=== PATIENT | female | born 1965 | race Caucasian/White ===

== ENCOUNTER 2019-04-18 16:48 | Inpatient (IN) | payer OTHER ==
[~2019-04-18] VITALS: Ht 157.5 cm; Wt 78.5 kg
[2019-04-18 17:04] VITALS: BP 148/85
[2019-04-18] MEDS ORDERED: KETOROLAC 30 MG/ML VIAL IVP ONE (17:25)
[2019-04-18] MEDS: NACL 0.9% 500 ML IV SCH ×2 (17:44→20:37)
[2019-04-18 18:18] LABS: BASOPHILS % (AUTO) 0.2 % (0.0-2.0); EOSINOPHILS % (AUTO) 0.2 % (0.0-4.0); HEMATOCRIT 40.9 % (36-48); HEMOGLOBIN 13.4 g/dL (12.0-16.0); LYMPHOCYTES # (AUTO) 1.5 K/uL (2.5-16.5); LYMPHOCYTES % (AUTO) 12.9 % (20.5-51.1); MEAN CORPUSCULAR HEMOGLOBIN 28 pg (27-31); MEAN CORPUSCULAR HGB CONC 33 g/dL (33-37); MEAN CORPUSCULAR VOLUME 86.2 fL (80-94); MONOCYTES # (AUTO) 0.3 K/uL (0.8-1.0); MONOCYTES % (AUTO) 2.8 % (1.7-9.3); NEUTROPHILS # (AUTO) 9.8 K/uL (1.8-7.7); NEUTROPHILS % (AUTO) 83.9 % (42.2-75.2); PLATELET COUNT (AUTO) 222 K/uL (140-450); RED BLOOD CELL COUNT(AUTO) 4.74 MIL/uL (4.20-5.40); RED CELL DISTRIBUTION WIDTH 14.5 % (11.6-13.7); WHITE BLOOD COUNT (AUTO) 11.7 K/uL (4.8-10.8)
[2019-04-18 18:41] LABS: PROTHROMBIN TIME 9.6 secs (10.8-13.4)
[2019-04-18 18:58] LABS: ALBUMIN 3.9 g/dL (3.4-5.0); ANION GAP 13.8 (8-16); CARBON DIOXIDE 27.5 mmol/L (21-32); POTASSIUM 3.3 mmol/L (3.5-5.1); TOTAL BILIRUBIN 0.3 mg/dL (0.0-1.0)
[2019-04-18] MEDS ORDERED: MORPHINE SULFATE 4 MG/ML SYR IVP ONE (19:00)
[2019-04-18] MEDS ORDERED: ONDANSETRON 4 MG/2 ML VIAL IVP ONE ×2 (19:45→20:00)
[2019-04-18] MEDS ORDERED: NACL 0.9% 2,500 ML IV ONE ×2 (19:45→19:55)
[2019-04-18] MEDS ORDERED: POTASSIUM CHLORIDE 10 MEQ TABER PO ONE ×2 (19:45→19:55)
[2019-04-18] MEDS ORDERED: NACL 0.9% 2,000 ML IV ONE (20:25)
[2019-04-18 20:40] LABS: APPEARANCE,URINE HAZY (CLEAR); BILIRUBIN,URINE NEGATIVE (NEGATIVE); BLOOD, URINE NEGATIVE (NEGATIVE); COLOR,URINE YELLOW (YELLOW); LEUKOCYTE ESTERASE ,URINE NEGATIVE (NEGATIVE); NITRITE, URINE NEGATIVE (NEGATIVE); UGLUCOSE 1+ (NEGATIVE)
[2019-04-18] MEDS ORDERED: MORPHINE SULFATE 10 MG/ML VIAL IVP ONE (20:55)
[2019-04-19] MEDS ORDERED: METO25TE2 PO (00:12)
[2019-04-19] MEDS ORDERED: CHLO25TA33 PO (00:12)
[2019-04-19] MEDS ORDERED: ONDANSETRON 4 MG/2 ML VIAL IVP ONE (00:25)
[2019-04-19] MEDS ORDERED: MORPHINE SULFATE 10 MG/ML VIAL IVP ONE (00:25)
[2019-04-19] MEDS ORDERED: HYDROcodone/APAP 7.5/325 MG 1 TAB PO PRN (03:45)
[2019-04-19] MEDS ORDERED: MORPHINE SULFATE 2 MG/ML SYR IVP PRN (03:45)
[2019-04-19] MEDS ORDERED: DOCUSATE SODIUM 100 MG GELCAP PO PRN (03:45)
[2019-04-19] MEDS ORDERED: ACETAMINOPHEN 325 MG TAB PO PRN (03:45)
[2019-04-19] MEDS ORDERED: ONDANSETRON 4 MG/2 ML VIAL IM/IVP PRN (03:45)
[2019-04-19] MEDS ORDERED: INSULIN LISPRO SLIDING SCALE 100 UNITS/ML VIAL SUBQ PRN (04:05)
[2019-04-19 04:55] VITALS: BP 145/84
[2019-04-19] MEDS: BLOOD GLUCOSE MONITORING 1 DEV DEV FS SCH ×4 (06:07→21:00)
[2019-04-19] MEDS ORDERED: DEXT 5% / NACL 0.45% 1,000 ML IV SCH (07:15)
[2019-04-19 07:32] LABS: ANION GAP 12.7 (8-16); CARBON DIOXIDE 26.2 mmol/L (21-32); CREATININE 0.7 mg/dL (0.6-1.3); POTASSIUM 3.9 mmol/L (3.5-5.1)
[2019-04-19 07:39] LABS: CHOL/HDL RATIO 3.6 (1-4.5); FREE T4 (FREE THYROXINE) 0.65 ng/dL (0.76-1.46); MAGNESIUM 1.6 mg/dL (1.8-2.4); PHOSPHORUS 3.5 mg/dL (2.5-4.9); THYROID STIMULATING HORMONE 3.24 uIU/mL (0.34-3.74)
[2019-04-19 08:00] VITALS: BP 130/72
[2019-04-19] MEDS: CHLORTHALIDONE 25MG TABLET PO SCH (09:00)
[2019-04-19] MEDS ORDERED: CHLORTHALIDONE 50 MG TAB PO SCH (09:00)
[2019-04-19] MEDS: METOPROLOL SUCCINATE 50 MG TABER PO SCH (10:35)
[2019-04-19] MEDS: PANTOPRAZOLE 40 MG TABEC PO SCH (10:36)
[2019-04-19 14:27] LABS: BASOPHILS % (AUTO) 0.1 % (0.0-2.0); HEMATOCRIT 38.5 % (36-48); HEMOGLOBIN 12.6 g/dL (12.0-16.0); LYMPHOCYTES # (AUTO) 1.5 K/uL (2.5-16.5); LYMPHOCYTES % (AUTO) 16.4 % (20.5-51.1); MEAN CORPUSCULAR HEMOGLOBIN 29 pg (27-31); MEAN CORPUSCULAR HGB CONC 33 g/dL (33-37); MONOCYTES # (AUTO) 0.4 K/uL (0.8-1.0); NEUTROPHILS # (AUTO) 7.5 K/uL (1.8-7.7); NEUTROPHILS % (AUTO) 79.5 % (42.2-75.2); PLATELET COUNT (AUTO) 213 K/uL (140-450); RED BLOOD CELL COUNT(AUTO) 4.42 MIL/uL (4.20-5.40); WHITE BLOOD COUNT (AUTO) 9.4 K/uL (4.8-10.8)
[2019-04-19 15:50] VITALS: BP 153/77
[2019-04-19] MEDS ORDERED: NACL 0.9% 1,000 ML IV SCH (16:40)
[2019-04-20] VITALS: BP 130/82
[2019-04-20] MEDS: BLOOD GLUCOSE MONITORING 1 DEV DEV FS SCH ×2 (06:00→11:34)
[2019-04-20 08:00] VITALS: BP 150/83
[2019-04-20 08:22] LABS: T4 (THYROXINE) 5.1 ug/dL (4.5-12.0)
[2019-04-20] MEDS: CHLORTHALIDONE 25MG TABLET PO SCH (09:23)
[2019-04-20] MEDS: PANTOPRAZOLE 40 MG TABEC PO SCH (09:24)
[2019-04-20] MEDS: METOPROLOL SUCCINATE 50 MG TABER PO SCH (09:24)
[2019-04-20 11:02] LABS: HEMATOCRIT 40.1 % (36-48); HEMOGLOBIN 13.2 g/dL (12.0-16.0); MEAN CORPUSCULAR HEMOGLOBIN 28 pg (27-31); MEAN CORPUSCULAR HGB CONC 33 g/dL (33-37); MEAN CORPUSCULAR VOLUME 85.7 fL (80-94); PLATELET COUNT (AUTO) 217 K/uL (140-450); RED BLOOD CELL COUNT(AUTO) 4.68 MIL/uL (4.20-5.40); RED CELL DISTRIBUTION WIDTH 14.6 % (11.6-13.7); WHITE BLOOD COUNT (AUTO) 10.2 K/uL (4.8-10.8)
[2019-04-20 11:11] LABS: ANION GAP 13.7 (8-16); CARBON DIOXIDE 27.1 mmol/L (21-32); POTASSIUM 3.8 mmol/L (3.5-5.1)
[2019-04-20 11:15] LABS: MAGNESIUM 1.9 mg/dL (1.8-2.4); PHOSPHORUS 2.7 mg/dL (2.5-4.9)
[2019-04-20 11:34] LABS: BASOPHILS % (MANUAL) 0 % (0-2); EOSINOPHILS % (MANUAL) 0 % (0-4); LYMPHOCYTES % (MANUAL) 24 % (20-46); MONOCYTES % (MANUAL) 8 % (5-12)
== END 2019-04-20 14:40 | disposition home or self-care (01) | DRG 760 ==
LOC: MED 16:48 → MTU 04-19 03:44
PROVIDERS: ADMIT Family Medicine; ATTEND Family Medicine
DX: N85.8 Other specified noninflammatory disorders of uterus (principal); E87.2 Acidosis; I10 Essential (primary) hypertension; E87.6 Hypokalemia; N28.1 Cyst of kidney, acquired; E11.65 Type 2 diabetes mellitus with hyperglycemia; Z83.3 Family history of diabetes mellitus; Z82.49 Family history of ischemic heart disease and other diseases of the circulatory system
CPT/HCPCS: 36415; 71045; 76856; 80048; 80053; 81003; 82140; 82150; 82948; 83036; 83605; 83690; 83735; 83880; 84100; 84436; 84439; 84443; 84479; 84484; 85025; 85610; 85730; 87040; 87081; 93005; 96361; 96374; 96375; 96376; 99285; J1644; J1885; J2270; J2405; J7030; Q0092